=== PATIENT | male | born 1990 | race Caucasian/White ===

== ENCOUNTER 2020-03-20 02:11 | Emergency (ER) | payer MEDICAID ==
[~2020-03-20] VITALS: Ht 170.2 cm; Wt 70.0 kg
[2020-03-20 02:12] VITALS: BP 135/76
--- NOTE | 2020-03-20 02:25 | NUR ---
Patient presents to ER by ambulance c/o sores all over his legs x3 months. Patient states he has been trying to get rid of them by poking them with his fingernails. Patient is in NAD. Respirations even and unlabored.
--- NOTE | 2020-03-20 02:27 | NUR ---
Patient denies drug use. Patient states he has seen a crusher setter and they state he can get them lanced but patient does not have the money right now.
== END 2020-03-20 03:24 | disposition home or self-care (01) ==
LOC: ED 02:30 → EDBD 02:30 → ED 03:24
DX: L20.9 Atopic dermatitis, unspecified (principal); L88 Pyoderma gangrenosum; Z72.9 Problem related to lifestyle, unspecified
CPT/HCPCS: 99283